=== PATIENT | female | born 1965 | race Caucasian/White ===

== ENCOUNTER → 2021-12-27 | Day surgery (SDC) | payer BC ==
[2021-12-25 09:17] LABS: BASOPHILS # (AUTO) 0.1 (0.0-0.1); BASOPHILS % 0.7 % (0.0-1.0); EOSINOPHILS # (AUTO) 0.1 (0.0-0.4); EOSINOPHILS % 1.1 % (0.0-6.0); HEMATOCRIT 42.5 % (34.2-44.1); HEMOGLOBIN 14.2 g/dL (12.0-16.0); LYMPHOCYTES # (AUTO) 1.5 (1.0-3.2); LYMPHOCYTES % 20.4 % (18.0-39.1); MEAN CORPUSCULAR HGB CONC 33.4 g/dL (31-35); MEAN CORPUSCULAR VOLUME 101.7 fL (81-99); MONOCYTES # (AUTO) 0.5 (0.2-0.8); MONOCYTES % 6.4 % (4.4-11.3); NEUTROPHILS # (AUTO) 5.3 (2.1-6.9); NEUTROPHILS % 70.9 % (38.7-80.0); PLATELET COUNT 283 x10e3/uL (140-360); RED BLOOD COUNT 4.18 x10e6/uL (3.6-5.1)
[2021-12-25 09:54] LABS: ANION GAP 14.8 mmol/L (8-16); CALCIUM 9.9 mg/dL (8.4-10.2); CREATININE, SERUM 0.82 mg/dL (0.57-1.11); POTASSIUM 4.8 mmol/L (3.5-5.1)
[~2021-12-27] MED LIST: BUPIVACAINE HCL 0.25% 10ML MPF VIAL INJ ONE; CEPHALEXIN500 M1; DEXAMETHASONE SOD PHOS INJ 4 MG/ML SDV ONE; ESTRADIOL PATCH TD; FENTANYL CITRATE/PF 100MCG/2 ML INJ ONE; KEFLEX125 MG/5 M PO; LIDOCAINE HCL 1% 2 ML AMP ONE; LIDOCAINE HCL 2% LOCAL INJ 5 ML SDV VIAL INJ ONE; MAGNESIUM PO; MULTI-VITAMIN1 EACH PO; NEOMYCIN/POLYMYX/BACITR OINT 0.9 GM PKT ONE; OMEPRAZOLE20 M1; OMEPRAZOLE40 MG PO; ONDANSETRON HCL INJ 2MG/ML 2ML 2 MG/ML VIAL ONE; POVIDONE IODINE 0.05% 0.05 % ML PO ONE; PROGESTERONE PO; PROPOFOL IV EMULSION 10 MG/ML 20 ML VIAL ONE; SEVOFLURANE INHAL SOLN 250 ML PEN BTL ONE; SODIUM CHLORIDE 0.9% 50ML 100 ML ONE; SYNTHROID50 MCG PO; TESTOSTERONE CREAM TOP; TRULANCE3 MG PO; TYLENOL EXTRA500 MG PO
[2021-12-27 12:00] VITALS: BP 146/87
== END | disposition home or self-care (01) ==
LOC: OR 06:30
PROVIDERS: ATTEND Podiatrist Foot Surgery
DX: M20.11 Hallux valgus (acquired), right foot (principal); M19.071 Primary osteoarthritis, right ankle and foot; M77.9 Enthesopathy, unspecified; E03.9 Hypothyroidism, unspecified; K21.9 Gastro-esophageal reflux disease without esophagitis; Z88.1 Allergy status to other antibiotic agents; Z01.810 Encounter for preprocedural cardiovascular examination; Z01.812 Encounter for preprocedural laboratory examination; Z01.818 Encounter for other preprocedural examination; Z20.822 Contact with and (suspected) exposure to COVID-19; Z79.899 Other long term (current) drug therapy
CPT/HCPCS: 28750; 36415; 71046; 76000; 80048; 85025; 93005; C1713 ×7; J0690; J1100; J2001; J3010; U0002; J2405

== ENCOUNTER → 2022-07-11 | Day surgery (SDC) | payer BC ==
[2022-07-09 08:08] LABS: BASOPHILS % 0.4 % (0.0-1.0); EOSINOPHILS # (AUTO) 0.1 (0.0-0.4); EOSINOPHILS % 1.3 % (0.0-6.0); HEMOGLOBIN 13.8 g/dL (12.0-16.0); LYMPHOCYTES # (AUTO) 1.8 (1.0-3.2); LYMPHOCYTES % 25.5 % (18.0-39.1); MEAN CORPUSCULAR HEMOGLOBIN 33.9 pg (28-32); MEAN CORPUSCULAR HGB CONC 32.9 g/dL (31-35); MEAN CORPUSCULAR VOLUME 103.2 fL (81-99); MONOCYTES # (AUTO) 0.4 (0.2-0.8); MONOCYTES % 6.2 % (4.4-11.3); NEUTROPHILS # (AUTO) 4.6 (2.1-6.9); NEUTROPHILS % 66.3 % (38.7-80.0); PLATELET COUNT 304 x10e3/uL (140-360); RED BLOOD COUNT 4.07 x10e6/uL (3.6-5.1); RED CELL DISTRIBUTION WIDTH 12.1 % (11.7-14.4)
[2022-07-09 08:26] LABS: ANION GAP 13.9 mmol/L (8-16); CALCIUM 9.5 mg/dL (8.4-10.2); CREATININE, SERUM 0.8 mg/dL (0.57-1.11); POTASSIUM 4.9 mmol/L (3.5-5.1)
[~2022-07-11] MED LIST changes: +BUPIVACAINE 0.25% 30ML SDV ONE; -BUPIVACAINE HCL 0.25% 10ML MPF VIAL INJ ONE; +BUPIVACAINE HCL 0.5% 10ML MPF VIAL INJ ONE; +DEXAMETHASONE SOD PHOS INJ 4 MG/ML SDV IV ONE; -FENTANYL CITRATE/PF 100MCG/2 ML INJ ONE; -LIDOCAINE HCL 1% 2 ML AMP ONE; +LIDOCAINE HCL 1% LOCAL INJ 20 ML VIAL ONE; -NEOMYCIN/POLYMYX/BACITR OINT 0.9 GM PKT ONE; +NEOSTIGMINE 1 MG/ML 10ML VIAL ONE; +ONDANSETRON HCL INJ 2MG/ML 2ML 2 MG/ML VIAL IV ONE; -ONDANSETRON HCL INJ 2MG/ML 2ML 2 MG/ML VIAL ONE; +PROPOFOL IV EMULSION 10 MG/ML 20 ML VIAL IV ONE; -PROPOFOL IV EMULSION 10 MG/ML 20 ML VIAL ONE; +SEVOFLURANE INHAL SOLN 250 ML PEN BTL INH ONE; -SEVOFLURANE INHAL SOLN 250 ML PEN BTL ONE; -SODIUM CHLORIDE 0.9% 50ML 100 ML ONE
[2022-07-11 09:05] VITALS: BP 134/82
== END | disposition home or self-care (01) ==
LOC: OR 06:35
PROVIDERS: ATTEND Podiatrist Foot Surgery
DX: G57.62 Lesion of plantar nerve, left lower limb (principal); E03.9 Hypothyroidism, unspecified; K57.90 Diverticulosis of intestine, part unspecified, without perforation or abscess without bleeding; R06.83 Snoring; R00.1 Bradycardia, unspecified; Z88.1 Allergy status to other antibiotic agents; Z01.810 Encounter for preprocedural cardiovascular examination; Z01.812 Encounter for preprocedural laboratory examination
CPT/HCPCS: 36415; 64704; 64727; 80048; 85025; 93005; J0690; J1100; J2001; J2405; J2704; J2710